=== PATIENT | female | born 1980 | race Caucasian/White ===

== ENCOUNTER → 2018-02-04 13:02 | Emergency (ER) | payer OTHER ==
[~2018-02-04 13:02] MED LIST: Ketorolac INJ* 30 MG/ML 1 ML VIAL IV PUSH ONE; Morphine VIAL* 4 MG/ML VIAL (1 ml vial) IV ONE; NS 0.9% 1000 ML* 1,000 ML IV ONE; Ondansetron INJ* 2 MG/ML VIAL IV ONE
--- OUTSIDE RECORDS SUMMARY | 2018-02-04 13:23 | XMS REPORT ---
:1980 External Reference #:[id number] Author Organization [employer] Address [address] [place] [address] [place] [address] Phone [phone] Care Team Providers Name Role Phone Paulina Ivory DO Primary Care Physician Unavailable Payers Type Date Identification Numbers Payment Provider Subscriber Commercial Policy Number: [id number] Isaiah Rachel PayID: [id number] [address] [place] [address] Commercial Expires: 2013 Policy Number: [employer] Employees Jacki Rachel [id number] PayID: [id number] [place] [address] Workers Compensation Effective: 2006 Policy Number: [id number] Oswaldo Jacki Rachel Onset: 2006 Group Number: [id number] [address] PayID: [id number] [place] [address] Commercial Expires: 2015 PayID: [id number] [employer] Employees [employer] Employee [address] [place] [address] Supplemental Policy Effective: Policy Number: Cont: [employer] Gibbs 2015 [id number] Employees Employee Expires: 2017 PayID: [id number] [place] [address] Problems Description No Information Family History Date Family Member(s) Problem(s) Comments General Breast Cancer General Kidney Cancer General Diabetes General Stroke General Hypertension Siblings 4 Social History Type Date Description Comments Marital Status Marital Status Lives With Sons Occupation Nurse ETOH Use Currently consumes alcohol Smoking Patient is a former smoker Recreational Drug Use Denies Drug Use Daily Caffeine Consumes on average 5-10 cups of regular coffee per day Exercise Type/Frequency Does not exercise Allergies, Adverse Reactions, Alerts Date Description Reaction Status Severity Comments 01/19/2010 active 12/25/2017 Nalbuphine active Medications Medication Date Status Form Strength Qnty SIG Indications Ordering Provider Motrin 01/19/2010 Active Tablets 400mg prn Guido Vee M.D. Apap 500 01/19/2010 Active Liquid 500mg/5ML Guido Vee M.D. Vital Signs Date Vital Result Comment 01/14/2018 Height 62.5 inches 5'2.50" Weight 145.00 lb Heart Rate 76 /min BP Systolic Sitting 116 mmHg BP Diastolic Sitting 70 mmHg Respiratory Rate 14 /min O2 % BldC Oximetry 98 % BMI (Body Mass Index) 26.1 kg/m2 12/25/2017 Height 62.5 inches 5'2.50" Weight 140.00 lb Heart Rate 64 /min BP Systolic Sitting 118 mmHg Lue regular cuff BP Diastolic Sitting 78 mmHg Lue regular cuff Respiratory Rate 16 /min O2 % BldC Oximetry 98 % BMI (Body Mass Index) 25.2 kg/m2 Neck Circumference in inches 12 01/19/2010 Weight 169.00 lb Heart Rate 65 /min BP Systolic Sitting 122 mmHg BP Diastolic Sitting 78 mmHg Results Test Date Test Result H/L Range Note Anca Panel For Vasculitis 12/25/2017 Myeloperoxidase AB < 0.2 U 1 Proteinase 3 AB < 0.2 U 2 Laboratory test finding 12/25/2017 Rheumatoid Factor < 10 IU/mL <15 TSH (Thyroid Stim Horm) 1.84 mcIU/mL 0.34-5.60 Vitamin B12 343 pg/mL 180-914 3 Anti Nuclear Antibody 0.2 U 4 Angiotensin Converting Enzyme 31 U/L 8 - 53 5 C Reactive Protein 2.19 mg/L <8.01 1 REFERENCE VALUE <0.4 (Negative) 2 REFERENCE VALUE <0.4 (Negative) Test Performed by: [facility] [address] [place] [address] 3 Normal Range 180 to 914 Indeterminate Range 145 to 180 Deficient Range <145 4 REFERENCE VALUE <=1.0 (Negative) Test Performed by: [facility] [address] [place] [address] 5 Test Performed by: [facility] [address] [place] [address] Procedures Description No Information Encounters Type Date Location Provider CPT E/M Dx Office Visit 01/14/2018 [facility] [place] [address] J98.4 8:15a [facility] J45.990 Office Visit 12/25/2017 8:00a [facility] [place] [address] J98.4 [facility] Office Visit 02/12/2011 9:00a [facility] [address] V70.0 Viktor Brandon Office Visit 01/19/2010 3:20p DO Not Use [employer] [facility] AT [facility] [place] [place], [address] V70.3 Sindhu Wood 724.2 Office Visit 01/23/2007 11:30a [facility], [address] 724.2 Lakisha Wood 729.5 Office Visit 11/20/2006 1:45p [facility], [address] 724.3 Lakisha Wood Plan of Care Future Appointment(s):01/14/2019 8:00 am - Minal Mondragon MD at [facility]01/14/2018 - Minal Mondragon MDJ98.4 Other disorders of lungFollow up:1 year , CT chest [id number] Exercise induced bronchospasm
[2018-02-04 13:58] LABS: ABS Basophils 0.1 10^3/ul (0-0.2); ABS Eosinophils 0.2 10^3/ul (0-0.6); ABS Lymphocytes 1.6 10^3/ul (1.0-4.8); ABS Monocytes 0.5 10^3/ul (0-0.8); ABS Neutrophils 6.1 10^3/ul (1.5-7.7); ABS Nucleated RBC 0 10^3/ul; Eosinophil % 2.5 % (0-6); Hematocrit 38 % (35-47); Hemoglobin 12.5 g/dl (12.0-16.0); Lymphocyte % 19.1 % (25-47); Mean Corpuscular HGB Conc 33 g/dl (31-36); Mean Corpuscular Hemoglobin 29 pg (27-31); Mean Corpuscular Volume 88 fL (80-97); Mean Platelet Volume 6.9 fL (7.4-10.4); Nucleated Red Blood Cells % 0; Platelet Count 366 10^3/ul (150-450); Red Cell Distribution Width 13 % (10.5-15); White Blood Count 8.6 10^3/ul (3.5-10.8)
[2018-02-04 14:19] LABS: EGFR Non-African American 81.9 (>60)
[2018-02-04 14:37] LABS: Urine Appearance Cloudy; Urine Blood 1+ (Negative); Urine Color Yellow; Urine Ketones Negative (Negative); Urine Protein Negative (Negative); Urine Red Blood Cell 3+(>10/hpf) (Absent); Urine Specific Gravity 1.013 (1.010-1.030); Urine Urobilinogen Negative (Negative); Urine White Blood Cell Trace(0-5/hpf) (Absent)
--- NOTE | 2018-02-04 16:32 | ED ---
Abdominal Pain/Female - HPI Summary HPI Summary: Patient with a history of kidney stones presents to the ED with right-sided flank pain times approximately 3 hours. She endorses nausea and vomiting. Denies any constipation or diarrhea. Denies any urinary symptoms including gross hematuria. Denies any other complaints at this time. She denies any fevers, sweats, chills. Pain is currently rated a 9/10, constant and throbbing. - History of Current Complaint Chief Complaint: EDAbdPain Stated Complaint: LOWER ABD PAIN LT SIDE/VOMITING Time Seen by Provider: 02/04/18 13:40 Hx Obtained From: Patient Hx Last Menstrual Period: currently ?: No Onset/Duration: Sudden Onset Timing: Constant Severity Initially: Severe Severity Currently: Severe Pain Intensity: 7 Pain Scale Used: 0-10 Numeric Location: Flank Radiates: No Character: Colicy Aggravating Factor(s): Nothing Alleviating Factor(s): Nothing Associated Signs and Symptoms: Positive: Back Pain - Risk Factors Ectopic Risk Factor: Negative Ovarian Torsion Risk Factor: Negative Allergies/Adverse Reactions: Allergies Allergy/AdvReac Type Severity Reaction Status Date / Time nalbuphine [From Nubain] Allergy Rash And Verified 02/04/18 13:12 Itching PMH/Surg Hx/FS Hx/Imm Hx Previously Healthy: Yes Respiratory History: Reports: Hx Asthma - Surgical History Surgery Procedure, Year, and Place: Tubal Ligation - Immunization History Hx Pertussis Vaccination: No Immunizations Up to Date: Yes Infectious Disease History: No Infectious Disease History: Denies: Traveled Outside the [place] in Last 30 Days - Social History Occupation: Employed Full-time Lives: With Family Alcohol Use: None Hx Substance Use: No Substance Use Type: Reports: None Hx Tobacco Use: Yes Smoking Status (MU): Never Smoked Tobacco Review of Systems Constitutional: Negative Negative: Fever, Chills, Fatigue, Skin Diaphoresis Negative: Palpitations, Chest Pain Negative: Shortness Of Breath, Cough Positive: Vomiting, Nausea. Negative: Abdominal Pain, Diarrhea Positive: no symptoms reported, see HPI, flank pain Negative: Arthralgia, Myalgia Skin: Negative All Other Systems Reviewed And Are Negative: Yes Physical Exam Triage Information Reviewed: Yes Vital Signs On Initial Exam: Initial Vitals Temp Pulse Resp BP Pulse Ox 97.6 F 91 18 141/80 90 02/04/18 13:09 02/04/18 13:09 02/04/18 13:09 02/04/18 13:09 02/04/18 13:09 Vital Signs Reviewed: Yes Appearance: Positive: Well-Appearing, Well-Nourished Skin: Positive: Warm, Skin Color Reflects Adequate Perfusion Head/Face: Positive: Normal Head/Face Inspection Eyes: Positive: EOMI, JAMI, Conjunctiva Clear Neck: Positive: Supple, No Lymphadenopathy Respiratory/Lung Sounds: Positive: Clear to Auscultation, Breath Sounds Present Cardiovascular: Positive: RRR, Pulses are Symmetrical in both Upper and Lower Extremities Abdomen Description: Positive: Nontender, Soft Musculoskeletal: Positive: Normal, Strength/ROM Intact Neurological: Positive: Speech Normal Psychiatric: Positive: Normal, Affect/Mood Appropriate AVPU Assessment: Alert Diagnostics - Vital Signs Vital Signs Temp Pulse Resp BP Pulse Ox 02/04/18 15:41 13 02/04/18 14:50 16 02/04/18 14:48 76 124/89 100 02/04/18 14:18 135/87 02/04/18 14:08 80 100 02/04/18 13:40 83 148/95 98 02/04/18 13:39 98 99 02/04/18 13:09 97.6 F 91 18 141/80 90 - Laboratory Lab Results: Lab Results 02/04/18 02/04/18 02/04/18 Range/Units 13:47 13:47 13:47 WBC 8.6 (3.5-10.8) 10^3/ul RBC 4.30 (4.00-5.40) 10^6/ul Hgb 12.5 (12.0-16.0) g/dl Hct 38 (35-47) % MCV 88 (80-97) fL MCH 29 (27-31) pg MCHC 33 (31-36) g/dl RDW 13 (10.5-15) % Plt Count 366 (150-450) 10^3/ul MPV 6.9 L (7.4-10.4) fL Neut % (Auto) 71.8 (38-83) % Lymph % (Auto) 19.1 L (25-47) % Franklin % (Auto) 6.0 (0-7) % Eos % (Auto) 2.5 (0-6) % Baso % (Auto) 0.6 (0-2) % Absolute Neuts (auto) 6.1 (1.5-7.7) 10^3/ul Absolute Lymphs (auto) 1.6 (1.0-4.8) 10^3/ul Absolute Monos (auto) 0.5 (0-0.8) 10^3/ul Absolute Eos (auto) 0.2 (0-0.6) 10^3/ul Absolute Basos (auto) 0.1 (0-0.2) 10^3/ul Absolute Nucleated RBC 0 10^3/ul Nucleated RBC % 0 Sodium 140 (135-145) mmol/L Potassium 4.1 (3.5-5.0) mmol/L Chloride 109 (101-111) mmol/L Carbon Dioxide 24 (22-32) mmol/L Anion Gap 7 (2-11) mmol/L BUN 16 (6-24) mg/dL Creatinine 0.79 (0.51-0.95) mg/dL Est GFR ( Amer) 99.1 (>60) Est GFR (Non-Af Amer) 81.9 (>60) BUN/Creatinine Ratio 20.3 H (8-20) Glucose 103 H (70-100) mg/dL Lactic Acid 0.7 (0.5-2.0) mmol/L Calcium 9.5 (8.6-10.3) mg/dL Total Bilirubin 0.30 (0.2-1.0) mg/dL AST 14 (13-39) U/L ALT 9 (7-52) U/L Alkaline Phosphatase 62 (34-104) U/L C-Reactive Protein 3.90 (<8.01) mg/L Total Protein 7.2 (6.4-8.9) g/dL Albumin 4.0 (3.2-5.2) g/dL Globulin 3.2 (2-4) g/dL Albumin/Globulin Ratio 1.3 (1-3) Lipase 13 (11.0-82.0) U/L Beta HCG, Quant < 0.60 mIU/mL Urine Color Urine Appearance Urine pH (5-9) Ur Specific [place] (1.010-1.030) Urine Protein (Negative) Urine Ketones (Negative) Urine Blood (Negative) Urine Nitrate (Negative) Urine Bilirubin (Negative) Urine Urobilinogen (Negative) Ur Leukocyte Esterase (Negative) Urine WBC (Auto) (Absent) Urine RBC (Auto) (Absent) Ur Squamous Epith Cells (Absent) Urine Bacteria (Absent) Urine Glucose (Negative) 02/04/18 Range/Units 14:16 WBC (3.5-10.8) 10^3/ul RBC (4.00-5.40) 10^6/ul Hgb (12.0-16.0) g/dl Hct (35-47) % MCV (80-97) fL MCH (27-31) pg MCHC (31-36) g/dl RDW (10.5-15) % Plt Count (150-450) 10^3/ul MPV (7.4-10.4) fL Neut % (Auto) (38-83) % Lymph % (Auto) (25-47) % Franklin % (Auto) (0-7) % Eos % (Auto) (0-6) % Baso % (Auto) (0-2) % Absolute Neuts (auto) (1.5-7.7) 10^3/ul Absolute Lymphs (auto) (1.0-4.8) 10^3/ul Absolute Monos (auto) (0-0.8) 10^3/ul Absolute Eos (auto) (0-0.6) 10^3/ul Absolute Basos (auto) (0-0.2) 10^3/ul Absolute Nucleated RBC 10^3/ul Nucleated RBC % Sodium (135-145) mmol/L Potassium (3.5-5.0) mmol/L Chloride (101-111) mmol/L Carbon Dioxide (22-32) mmol/L Anion Gap (2-11) mmol/L BUN (6-24) mg/dL Creatinine (0.51-0.95) mg/dL Est GFR ( Amer) (>60) Est GFR (Non-Af Amer) (>60) BUN/Creatinine Ratio (8-20) Glucose (70-100) mg/dL Lactic Acid (0.5-2.0) mmol/L Calcium (8.6-10.3) mg/dL Total Bilirubin (0.2-1.0) mg/dL AST (13-39) U/L ALT (7-52) U/L Alkaline Phosphatase (34-104) U/L C-Reactive Protein (<8.01) mg/L Total Protein (6.4-8.9) g/dL Albumin (3.2-5.2) g/dL Globulin (2-4) g/dL Albumin/Globulin Ratio (1-3) Lipase (11.0-82.0) U/L Beta HCG, Quant mIU/mL Urine Color Yellow Urine Appearance Cloudy Urine pH 7.0 (5-9) Ur Specific [place] 1.013 (1.010-1.030) Urine Protein Negative (Negative) Urine Ketones Negative (Negative) Urine Blood 1+ A (Negative) Urine Nitrate Negative (Negative) Urine Bilirubin Negative (Negative) Urine Urobilinogen Negative (Negative) Ur Leukocyte Esterase Negative (Negative) Urine WBC (Auto) Trace(0-5/hpf) (Absent) Urine RBC (Auto) 3+(>10/hpf) A (Absent) Ur Squamous Epith Cells Present A (Absent) Urine Bacteria Absent (Absent) Urine Glucose Negative (Negative) Result Diagrams: 02/04/18 13:47 02/04/18 13:47 Lab Statement: Any lab studies that have been ordered have been reviewed, and results considered in the medical decision making process. Abdominal Pain Fem Course/Dx - Course Course Of Treatment: During the course of treatment, the patient's evaluated for right-sided flank pain. CT abdomen and pelvis obtained to assess for kidney stone. This was read with hydronephrosis with a 9 x 3 stone in the distal right ureter. Patient continues to be in pain, however is declining pain medication on arrival. She is given Toradol without good relief. She is then willing to accept pain medication and 2 mg morphine is given. After approximately 30 minutes, she continues to be in pain and another 2 mg morphine is given. This is with good relief. Discussed case with Dr. Green who suggests pain management, straining urine and Flomax and to follow-up if symptoms persist or worsen. There is no bacteria and the urine and she will not be treated at this time for a UTI. - Diagnoses Differential Diagnosis: Positive: Renal Colic Provider Diagnoses: Right kidney stone Discharge - Sign-Out/Discharge Documenting (check all that apply): Patient Departure - Discharge Plan Condition: Stable Disposition: HOME Prescriptions: HYDROcodone/ACETAMIN 5-325 MG* [[place] 5-325 TAB*] 2 tab PO Q4H PRN #16 tab MDD 8 PRN Reason: Pain Tamsulosin CAP* [Flomax CAP*] 0.4 mg PO BEDTIME #5 cap Patient Education Materials: Kidney Stones (ED) Referrals: Paulina Ivory DO [Primary Care Provider] - Nikolas Green MD [Medical Doctor] - Additional Instructions: Flomax once at bedtime Strain your urine Hydrocodone, 1-2 tabs up to every 4 hours as needed for pain You may also supplement with ibuprofen, but do not use Tylenol Please follow-up with Dr. Green if symptoms persist or worsen Female was return to the ED for worsening symptoms - Billing Disposition and Condition Condition: STABLE Disposition: Home
[2018-02-04 16:49] VITALS: BP 124/87
== END | disposition home or self-care (01) ==
LOC: ED 13:02
DX: N13.2 Hydronephrosis with renal and ureteral calculous obstruction (principal); Z88.5 Allergy status to narcotic agent
CPT/HCPCS: 36415; 74176; 80053; 81003; 81015; 83605; 83690; 84702; 85025; 86140; 87086; 96374; 96375; 96376; 99283; J1885; J2270; J2405